=== PATIENT | male | born 1945 | race Caucasian/White ===

== ENCOUNTER 2016-08-11 13:35 | Observation (INO) | payer MEDICARE, OTHER ==
--- NOTE | ~2016-08-11 | CN ---
Consultation Report [facility] [address] [place]. [address] NAME: NITHIN OLSEN : [birth year] STATUS : ADM Aramis PAT#: [id number] AGE: 71 ADM/REG DATE : 08/11/16 MR#: [id number] REPORT SERV DATE: 08/12/16 DICTATED BY: NITHIN HERRON DATE: 08/12/16 REPORT STATUS : Draft TRANSCRIBED BY: MODL DATE: 08/12/16 INPATIENT CONSULTATION DATE OF CONSULTATION: 08/12/2016 REASON FOR CONSULTATION: Hematemesis and melena. HISTORY OF PRESENT ILLNESS: Mr. Olsen is a very pleasant 71-year-old male with past medical history significant only for a history of rheumatoid arthritis, on chronic NSAIDs, who presented to the emergency department with complaints of dark black liquid stools and an episode of hematemesis with clots. The patient states that on the day prior to presentation, he started noticing that his stools were turning dark black when liquid. The following morning, on the day of presentation, the patient was noted to have a syncopal episode, which was followed by an episode of hematemesis with vomiting of dark clots. The patient went to the emergency department for evaluation and was noted to have a hemoglobin of 12.0, platelet count was 228,000. INR was 1.3, PTT was 25. Comprehensive metabolic panel was remarkable for an elevated BUN of 37 and a creatinine of 1.0. The remainder of the patient's labs were unremarkable. The patient was admitted for further evaluation, and GI consult was called. REVIEW OF SYSTEMS: All systems were reviewed and were negative, aside from what was mentioned in the history of present illness. The patient denied any abdominal pain. No fevers or chills. No further nausea or vomiting. PAST MEDICAL HISTORY: Includes: 1. Rheumatoid arthritis, on daily NSAIDs. 2. Gout. FAMILY HISTORY: The patient does have a family history of colon cancer and has had regular screenings by report, but the patient does not know the name of his patient observation assistant. The patient's patient observation assistant is reportedly in [place]. SOCIAL HISTORY: The patient denies any alcohol, tobacco, or illicit substance use. ALLERGIES: THE PATIENT HAS NO KNOWN DRUG ALLERGIES. MEDICATIONS: Outpatient medications include: 1. Allopurinol. 2. Aspirin. 3. CoQ10. 4. Etodolac. 5. Diclofenac. 6. Magnesium oxide. Consultation Report [facility] [address] [place]. [address] NAME: NITHIN OLSEN : [birth year] STATUS : ADM Aramis PAT#: [id number] AGE: 71 ADM/REG DATE : 08/11/16 MR#: [id number] REPORT SERV DATE: 08/12/16 DICTATED BY: NITHIN HERRON DATE: 08/12/16 REPORT STATUS : Draft TRANSCRIBED BY: MODL DATE: 08/12/16 7. Red yeast. 8. Multivitamin. 9. Mirapex. 10.Garlic. 11.Fish oil. 12.Turmeric. PHYSICAL EXAMINATION: VITAL SIGNS: Most recent vital signs include a temperature of 98.2, heart rate of 84, blood pressure 109/55, saturating 96% on room air. GENERAL INSPECTION: Reveals an obese male, lying in bed, in no apparent distress. HEENT: Head is normocephalic and atraumatic. Oral mucosa has moist mucous membranes. Sclerae are nonicteric. Pupils are equal and round. NECK: Supple without lymphadenopathy. HEART: Rate is regular with normal S1 and S2. RESPIRATORY: Lung sounds clear to auscultation bilaterally. ABDOMEN: Soft, nontender, nondistended with normoactive bowel sounds. EXTREMITIES: The patient has no cyanosis, clubbing, or edema. SKIN: No jaundice or rash. NEUROLOGIC: No gross motor deficits. He is alert and oriented. Mood and affect are appropriate. Judgment appears to be intact. LABORATORY DATA: Most recent laboratory results include CBC that demonstrated a drop in hemoglobin to 10.3, white count is 8.4, platelet count is 183,000. Comprehensive metabolic panel was entirely unremarkable, aside from a low albumin of 2.7. Iron studies were normal. No pertinent imaging to review. ASSESSMENT AND PLAN: Mr. Olsen is a very pleasant 71-year-old male with a past medical history of rheumatoid arthritis, on daily NSAIDs, who presents after an episode of hematemesis and melena. This is concerning for peptic ulcer disease. Would keep the patient n.p.o. for the time being and place him on a Protonix drip until endoscopy can be performed. We will proceed with upper endoscopy for further evaluation. Further recommendations to come after endoscopy. Thank you very much for this interesting consult and allowing us to participate in Mr. Olsen's care. Please call with any questions or concerns you may have. [facility] Nithin Herron MD Consultation Report [address] [address] NAME: NITHIN OLSEN : [birth year] STATUS : ADM Aramis PAT#: [id number] AGE: 71 ADM/REG DATE : 08/11/16 MR#: [id number] REPORT SERV DATE: 08/12/16 DICTATED BY: NITHIN HERRON DATE: 08/12/16 REPORT STATUS : Draft TRANSCRIBED BY: LUCAS DATE: 08/12/16 / [id number] CC: Nithin Marte Jr, MD
--- NOTE | ~2016-08-11 | EGD ---
EGD REPORT [facility] [address] [place] [address] NAME: NITHIN OLSEN : 47 STATUS : ADM Aramis PAT#: [id number] AGE: 71 ADM/REG DATE : 08/11/16 MR#: [id number] REPORT SERV DATE: 08/12/16 DICTATED BY: NITHIN HERRON DATE: 08/12/16 REPORT STATUS : Draft [facility]ANSCRIBED BY: [facility] DATE: 08/12/16 Endoscopy Center Patient Name: Nithin Olsen Date of : 1945 Attending MD: NITHIN HERRON MD Procedure Date No Time: 08/12/2016 Procedure: Upper GI endoscopy Indications: Hematemesis, Melena Referring MD: MACIE PINTO MD Medicines: Monitored Anesthesia Care Complications: No immediate complications. Estimated blood loss: Minimal. Procedure: Pre-Anesthesia Assessment: - ASA Grade Assessment: III - A patient with severe systemic disease. After obtaining informed consent, the endoscope was passed under direct vision. Throughout the procedure, the patient's blood pressure, pulse, and oxygen saturations were monitored continuously. The GIF H190 [id number] was introduced through the mouth, and advanced to the second part of duodenum. The upper GI endoscopy was accomplished without difficulty. The patient tolerated the procedure well. Findings: The examined esophagus was normal. A small hiatus hernia was present. A 10 mm gastric ulcer was seen with no bleeding and no stigmata of bleeding. Biopsies were taken with a colod forceps for histology. The examined duodenum was normal. The exam was otherwise without abnormality. Impression: - Hiatal Hernia - Gastric ulcer with clean base. Biopsied. - The examination was otherwise normal. Recommendation: - Return patient to hospital [facility] for ongoing care. - Await pathology results. - Clear liquid diet today. - Use Protonix (pantoprazole) 40 mg PO BID for 3 months. - Return to GI clinic in 8 weeks. Procedure Code(s): --- Professional --- 48968, Esophagogastroduodenoscopy, flexible, transoral; with biopsy, single or multiple EGD REPORT [facility] [address] [place]. [address] NAME: NITHIN OLSEN : [birth year] STATUS : ADM Aramis PAT#: [id number] AGE: 71 ADM/REG DATE : 08/11/16 MR#: [id number] REPORT SERV DATE: 08/12/16 DICTATED BY: NITHIN HERRON DATE: 08/12/16 REPORT STATUS : Draft TRANSCRIBED BY: [employer] DATE: 08/12/16 Diagnosis Code(s): --- Professional --- K25.9, Gastric ulcer, unspecified as acute or chronic, without hemorrhage or perforation K92.0, Hematemesis K92.1, Melena CPT copyright 2013 [employer]. All rights reserved. The codes documented in this report are preliminary and upon chemical weigher review may be revised to meet current compliance requirements. Nithin Herron MD NITHIN HERRON MD 08/12/2016 8:26 AM This report has been signed electronically. Number of Addenda: 0 Note Initiated On: 08/12/2016 8:02 AM Scope Withdrawal Time 0 hours 0 minutes 0 seconds [address] [place] [address]
--- NOTE | ~2016-08-11 | DS ---
Discharge Summary [facility] [address] [address] [place]. [address] NAME: NITHIN OLSEN : [birth year] STATUS : DIS Aramis PAT#: [id number] AGE: 71 ADM/REG DATE : 08/11/16 MR#: [id number] REPORT SERV DATE: 08/13/16 DICTATED BY: JR. MARTE WILLIAM JOHN DATE: 08/12/16 REPORT STATUS : Draft TRANSCRIBED BY: MODBrendan DATE: 08/12/16 ADMISSION DATE: 08/11/2016 DISCHARGE DATE: 08/12/2016 DISCHARGE DIAGNOSES: 1. Gastric antral ulcer with clean base. 2. Orthostatic syncope. 3. Rheumatoid arthritis. 4. Mildly prolonged QRS. 5. Gout. OPERATIONS, PROCEDURES, AND TREATMENTS: 1. Chest x-ray done 08/11/2016, which showed cardiomegaly without acute findings. 2. Upper endoscopy by Dr. Nithin Rust on 08/12 with the finding of hiatal hernia, a gastric ulcer with clean base, which was biopsied, otherwise normal exam. DISCHARGE MEDICATIONS: 1. Allopurinol 300 mg orally daily. 2. Coenzyme Q 100 mg orally daily. 3. Mag-Ox 400 mg orally daily. 4. Protonix 40 mg orally twice a day for 12 weeks. 5. Mirapex 0.25 mg orally daily. 6. Multivitamin tablet orally daily. 7. Red yeast twice a day 600 mg. 8. Garlic one tablet orally daily. 9. Fish oil 5 mL orally daily. 10.Turmeric 500 mg orally daily. HOSPITAL COURSE: The patient is a 71-year-old white male with a history of rheumatoid arthritis and gout on chronic NSAID therapy. He has noticed dark stools and diarrhea followed by a brief syncopal episode. The patient went to discuss with his primary care physician in clinic who recommended the patient to come to the emergency room. The patient had no symptoms once in the emergency room. His initial exam was rather unremarkable with a temperature 98.2, blood pressure 131/75, heart rate 101, respiratory rate of 16. He did have a systolic ejection murmur and his initial hemoglobin level was 12. The patient was admitted to the hospital placed on proton pump inhibitor therapy and seen in consultation by Gastroenterology. He underwent serial hemoglobin and hematocrit, which were stable around 10.3. He required no transfusion. He had an upper endoscopy, which showed an antral gastric ulcer with a clean base. No stigmata of recent bleed. Recommendation was for twice a day proton pump inhibitor for 12 weeks and followup with GI in 8 weeks. The patient strongly desired discharge home. On the day of the endoscopy, we discussed with him the risk especially given his syncope. The patient chooses to accept that risk and desires discharge home, agrees to follow up if he has any evidence of bleeding or presyncope. DISCHARGE DIET: GI soft. Discharge Summary [address] [address] NAME: NITHIN OLSEN : [birth year] STATUS : DIS Aramis PAT#: [id number] AGE: 71 ADM/REG DATE : 08/11/16 MR#: [id number] REPORT SERV DATE: 08/13/16 DICTATED BY: JR. MARTE WILLIAM JOHN DATE: 08/12/16 REPORT STATUS : Draft TRANSCRIBED BY: LUCAS DATE: 08/12/16 ACTIVITY: As tolerated. For discharge exam and laboratory, please see daily progress note. [facility] Nithin Marte Jr, MD / [id number] CC: Nithin Marte Jr, MD
--- NOTE | ~2016-08-11 | EGD ---
EGD REPORT [facility] [address] [place]. [address] NAME: NITHIN OLSEN : [birth year] STATUS : ADM Aramis PAT#: [id number] AGE: 71 ADM/REG DATE : 08/11/16 MR#: [id number] REPORT SERV DATE: 08/12/16 DICTATED BY: NITHIN HERRON DATE: 08/12/16 REPORT STATUS : Draft TRANSCRIBED BY: [facility] DATE: 08/12/16 Endoscopy Center Patient Name: Nithin Olsen Date of : 1945 Attending MD: NITHIN HERRON MD Procedure Date No Time: 08/12/2016 Procedure: Upper GI endoscopy Indications: Hematemesis, Melena Referring MD: MACIE PINTO MD Medicines: Monitored Anesthesia Care Complications: No immediate complications. Estimated blood loss: Minimal. Procedure: Pre-Anesthesia Assessment: - ASA Grade Assessment: III - A patient with severe systemic disease. After obtaining informed consent, the endoscope was passed under direct vision. Throughout the procedure, the patient's blood pressure, pulse, and oxygen saturations were monitored continuously. The GIF H190 [id number] was introduced through the mouth, and advanced to the second part of duodenum. The upper GI endoscopy was accomplished without difficulty. The patient tolerated the procedure well. Findings: The examined esophagus was normal. A small hiatus hernia was present. The examined duodenum was normal. The exam was otherwise without abnormality. Impression: - Hiatal Hernia - Gastric ulcer with clean base. Biopsied. - The examination was otherwise normal. Recommendation: - Return patient to hospital [facility] for ongoing care. - Await pathology results. - Clear liquid diet today. - Use Protonix (pantoprazole) 40 mg PO BID for 3 months. - Return to GI clinic in 8 weeks. Procedure Code(s): --- Professional --- 38379, Esophagogastroduodenoscopy, flexible, transoral; with biopsy, single or multiple Diagnosis Code(s): --- Professional --- EGD REPORT [facility] [address] [place] [address] NAME: NITHIN OLSEN : [birth year] STATUS : ADM Aramis PAT#: [id number] AGE: 71 ADM/REG DATE : 08/11/16 MR#: [id number] REPORT SERV DATE: 08/12/16 DICTATED BY: NITHIN HERRON DATE: 08/12/16 REPORT STATUS : Draft TRANSCRIBED BY: [employer] DATE: 08/12/16 K25.9, Gastric ulcer, unspecified as acute or chronic, without hemorrhage or perforation K92.0, Hematemesis K92.1, Melena CPT copyright 2013 [employer]. All rights reserved. The codes documented in this report are preliminary and upon comic book writer review may be revised to meet current compliance requirements. Nithin Herron MD NITHIN HERRON MD 08/12/2016 8:26 AM This report has been signed electronically. Number of Addenda: 0 Note Initiated On: 08/12/2016 8:02 AM Scope Withdrawal Time 0 hours 0 minutes 0 seconds [address] [place] [address]
--- NOTE | ~2016-08-11 | HP ---
History And Physical [place] [address] [facility]. [address] NAME: NITHIN OLSEN : [birth year] STATUS : ADM Aramis PAT#: [id number] AGE: 71 ADM/REG DATE : 08/11/16 MR#: [id number] REPORT SERV DATE: 08/12/16 DICTATED BY: RUBEN ZULETA DATE: 08/11/16 REPORT STATUS : Draft TRANSCRIBED BY: MODL DATE: 08/11/16 DATE OF ADMISSION: 08/11/2016 CHIEF COMPLAINT: Acute vomiting of blood. HISTORY OF PRESENT ILLNESS: The patient is a 71-year-old male, with past medical history of RA and gout on chronic NSAIDs who yesterday started noticing having dark stools with diarrhea, went to sleep and this morning was getting ready, noted to have syncope episode in which he passed out, was caught by and once came to had vomitus of dark clots. The patient went to discuss with PCP in clinic who recommended ER evaluation. Upon arrival, the patient reports that his symptoms have resolved, has not had any more dark stools or vomiting. No more dizziness or syncope type episode. Symptoms were fairly sudden, occurred last night and this morning, moderate severity with no pain radiating symptoms. No headaches. Positive nausea, vomiting, and diarrhea. No fever or chills, wheezing or chest pain. There is no worsening or relieving symptoms. Symptoms appear to have resolved. REVIEW OF SYSTEMS: Additional ten point review of systems negative except for that noted in the HPI. PAST MEDICAL HISTORY: RA, gout. SURGICAL HISTORY: None. FAMILY HISTORY: Noted for colon cancer in which the patient himself has also been on regular screening, approximately five years ago. Diabetes and coronary disease medical history. SOCIAL HISTORY: Accompanied by spouse. No smoking, alcohol, or illicits. Retired . ALLERGIES: NO KNOWN DRUG ALLERGIES. HOME MEDICATIONS: Allopurinol, aspirin, CoQ10, etodolac, magnesium oxide, red yeast, multivitamin, Mirapex, garlic, fish oil, turmeric. DATA: EKG shows normal sinus rhythm with left axis changes, QTc mildly enlarged at 490 with a rate of 86. CMP grossly within normal limits with a BUN enlarged at 37, creatinine 1.02, potassium 4.1. LFTs within normal limits. CBC: WBC 11.5, H and H 12 and 36.2, platelets 228, INR 1.3. PHYSICAL EXAMINATION: VITAL SIGNS: Blood pressure again was 131/75, temperature 98.2, pulse initially 101 down to 80s, respirations 16, O2 saturations 97% on room air. GENERAL: No acute distress. Calm, pleasant, well developed, well nourished, obese. EYES: No scleral icterus. EOMI. ENT: Nares patent. Tongue midline. Moist mucous membranes. History And Physical [address] [place]. [address] NAME: NITHIN OLSEN : [birth year] STATUS : ADM Aramis PAT#: [id number] AGE: 71 ADM/REG DATE : 08/11/16 MR#: [id number] REPORT SERV DATE: 08/12/16 DICTATED BY: RUBEN ZULETA DATE: 08/11/16 REPORT STATUS : Draft TRANSCRIBED BY: LUCAS DATE: 08/11/16 RESPIRATORY: Clear to auscultation. No wheezes, rales, or rhonchi. CV: Regular rate. Systolic ejection murmur approximately 2/6 to 3/6 chronic. No pedal edema. GI: Soft, nontender, nondistended. Bowel sounds positive. Negative rebound. Hemoccult positive in ED. : Deferred. MUSCULOSKELETAL: Moves all extremities x4. SKIN: Warm and dry. LYMPH: No cervical or supraclavicular lymphadenopathy. HEME: No bleeding or bruising on skin acutely. NEURO: Alert and oriented. No asterixis. Moves all extremities x4. No reproducible symptomatic orthostasis currently. PSYCH: Appropriate mood and affect. ASSESSMENT AND PLAN: 1. Upper gastrointestinal bleed. 2. Rheumatoid arthritis. 3. Dark stools. 4. Mild prolonged QRS. 5. Gout. PLAN: 1. For upper GI bleed, does have significant NSAID use. Has been using diclofenac for years has been changed over to etodolac approximately two years ago. We will hold NSAIDs at this time with the elevated BUN creatinine ratio greater than 20 to 1, PPI drip. Case has been discussed with GI quality control chemist. We will place n.p.o. at midnight. PPI drip and EGD planned for a.m. The patient has had prior scope approximately five years ago due to colon cancer history in family, noted to have polyps but no acute episodes. This was arranged through CT, and the patient is unaware of GI doctor who performed this procedure. 2. RA. Hold NSAIDs p.r.n. 3. Dark stools. Monitor serial H and H, transfuse if hemoglobin less than 8 or hematocrit less than 25, currently vital signs stable. 4. Mild prolonged QRS. Monitor lytes, no acute findings, a.m. EKG and followup. Does have baseline murmur, has been followed by PCP. 5. Gout. Continue home medications. All questions answered to the patient's family at bedside. DISPOSITION: Pending findings from above and monitoring of labs. I have discussed current plan and progress tentatively. Also, I have discussed that if change in vital signs, H and H, may require higher level care/ICU care although with current H and H fairly stable, tachycardia resolving, and blood pressure stabilizing. I anticipate the patient has already started having healing of upper GI source. History And Physical [address] [address] NAME: NITHIN OLSEN : [birth year] STATUS : ADM Aramis PAT#: [id number] AGE: 71 ADM/REG DATE : 08/11/16 MR#: [id number] REPORT SERV DATE: 08/12/16 DICTATED BY: RUBEN ZULETA DATE: 08/11/16 REPORT STATUS : Draft TRANSCRIBED BY: LUCAS DATE: 08/11/16 [facility] Ruben Zuleta MD / [id number] CC: Nithin Marte Jr, MD William Korn, M.D.
[2016-08-11 14:30] LABS: BASOPHILS 0.4 %; BASOPHILS ABSOLUTE 0.05 10/3/uL (0.0-0.16); EOSINOPHILS 1.3 %; EOSINOPHILS ABSOLUTE 0.15 10/3/uL (0.0-0.53); ER CBC TAT 0 Hrs 08 Mins; HEMATOCRIT 36.2 % (40.0-51.0); IMMATURE GRANULOCYTES 0.3 %; IMMATURE GRANULOCYTES ABSOLUTE 0.03 10/3/uL (0.0-0.11); LYMPHOCYTES 16.6 %; LYMPHOCYTES ABSOLUTE 1.92 10/3/uL (0.67-4.30); MEAN CORPUS HGB CONC 33.1 g/dL (32.0-36.0); MEAN CORPUSCULAR HEMOGLOB 32.7 pg (26.0-34.0); MEAN CORPUSCULAR VOLUME 98.6 fL (80-100); MEAN PLATELET VOLUME 9.9 fL (9.2-13.0); MONOCYTES ABSOLUTE 1.04 10/3/uL (0.21-1.20); NEUTROPHILS 72.4 %; NEUTROPHILS ABSOLUTE 8.35 10/3/uL (2.02-8.40); PLATELET COUNT 228 10/3/uL (150-400); RBC DISTRIBUTION WIDTH 14.3 % (12.0-16.0); RED CELL COUNT 3.67 10/6/uL (4.7-6.1); WHITE BLOOD CELLS 11.5 10/3/uL (4.5-10.5)
[2016-08-11 14:31] LABS: MANUAL DIFF NO %
[2016-08-11 14:34] LABS: INTERNATIONAL NORMAL RATI 1.3 UNITS (-); PARTIAL THROMBO TIME 24.6 SEC (22.5-37.2); PROTIME (NOT ORD) 15.9 SEC (12.0-14.5)
[2016-08-11 14:42] LABS: A/G RATIO 0.9 (0.7-1.9); ALBUMIN 3.2 G/DL (3.5-5.0); ALKALINE PHOSPHATASE 50 U/L (45-117); BUN (BLOOD UREA NITROGEN) 37 MG/DL (6-23); CALCIUM, SERUM 8.2 MG/DL (8.5-10.4); CHLORIDE, SERUM 103 MMOL/L (96-112); CO2 (CARBON DIOXIDE) 26 MMOL/L (24-34); CREATININE 1.02 MG/DL (0.70-1.30); GFR AFRICAN AMERICAN 86 ML/MIN (>=60); GFR NON AFRICAN AMERICAN 74 ML/MIN (>=60); GLOBULIN 3.4 G/DL (2.5-4.1); GLUCOSE, SERUM 96 MG/DL (60-99); POTASSIUM, SERUM 4.1 MMOL/L (3.5-5.3); SGOT(AST) 19 U/L (5-40); SGPT(ALT) 22 U/L (5-65); SODIUM, SERUM 138 MMOL/L (135-148); TOTAL BILIRUBIN 0.5 MG/DL (0-1.2); TOTAL PROTEIN 6.6 G/DL (6.0-8.5)
[2016-08-11] MEDS ORDERED: ETODOLAC400 MG PO (17:55)
[2016-08-11] MEDS ORDERED: Z300 PO (17:55)
[2016-08-11] MEDS ORDERED: MIRAPEX250 PO (17:56)
[2016-08-11] MEDS ORDERED: ASAB PO (17:57)
[2016-08-11] MEDS ORDERED: MULTIVITAMI1 PO (17:57)
[2016-08-11] MEDS ORDERED: CO Q-10100 MG PO (17:58)
[2016-08-11] MEDS ORDERED: RED YEAS1 PO (17:58)
[2016-08-11] MEDS ORDERED: GARLIQUE PO (17:58)
[2016-08-11] MEDS ORDERED: FISH OIL PO (17:59)
[2016-08-11] MEDS ORDERED: TURMERIC PO (18:00)
[2016-08-11] MEDS ORDERED: MAGOX4 PO (18:00)
[2016-08-11 23:24] LABS: HEMOGLOBIN 10.4 g/dL (13.6-17.8)
[2016-08-11 23:27] LABS: HEMATOCRIT 30.9 % (40.0-51.0)
[2016-08-12 06:46] LABS: BASOPHILS 0.5 %; BASOPHILS ABSOLUTE 0.04 10/3/uL (0.0-0.16); EOSINOPHILS 3.6 %; HEMATOCRIT 30.1 % (40.0-51.0); HEMOGLOBIN 10.3 g/dL (13.6-17.8); IMMATURE GRANULOCYTES 0.2 %; IMMATURE GRANULOCYTES ABSOLUTE 0.02 10/3/uL (0.0-0.11); LYMPHOCYTES 12.8 %; LYMPHOCYTES ABSOLUTE 1.07 10/3/uL (0.67-4.30); MEAN CORPUS HGB CONC 34.2 g/dL (32.0-36.0); MEAN CORPUSCULAR HEMOGLOB 33.4 pg (26.0-34.0); MEAN CORPUSCULAR VOLUME 97.7 fL (80-100); MEAN PLATELET VOLUME 9.8 fL (9.2-13.0); MONOCYTES 12.1 %; MONOCYTES ABSOLUTE 1.01 10/3/uL (0.21-1.20); NEUTROPHILS 70.8 %; NEUTROPHILS ABSOLUTE 5.91 10/3/uL (2.02-8.40); PLATELET COUNT 183 10/3/uL (150-400); RBC DISTRIBUTION WIDTH 14.3 % (12.0-16.0); RED CELL COUNT 3.08 10/6/uL (4.7-6.1); WHITE BLOOD CELLS 8.4 10/3/uL (4.5-10.5)
[2016-08-12 06:47] LABS: MANUAL DIFF NO %
[2016-08-12 07:05] LABS: A/G RATIO 0.9 (0.7-1.9); ALBUMIN 2.7 G/DL (3.5-5.0); ALKALINE PHOSPHATASE 46 U/L (45-117); CALCIUM, SERUM 7.4 MG/DL (8.5-10.4); CHLORIDE, SERUM 105 MMOL/L (96-112); CO2 (CARBON DIOXIDE) 26 MMOL/L (24-34); FERRITIN 76 NG/ML (26-388); GFR AFRICAN AMERICAN 105 ML/MIN (>=60); GFR NON AFRICAN AMERICAN 91 ML/MIN (>=60); GLUCOSE, SERUM 96 MG/DL (60-99); IRON BINDING CAPACITY 258 MCG/DL (250-450); IRON, SERUM 36 MCG/DL (35-150); SGOT(AST) 15 U/L (5-40); SGPT(ALT) 19 U/L (5-65); SODIUM, SERUM 139 MMOL/L (135-148); TOTAL BILIRUBIN 0.8 MG/DL (0-1.2); TOTAL PROTEIN 5.7 G/DL (6.0-8.5)
[2016-08-12 07:06] LABS: BUN (BLOOD UREA NITROGEN) 24 MG/DL (6-23)
[2016-08-12] MEDS ORDERED: PROTONIX PO (15:45)
[2016-10-06] MEDS ORDERED: NEUR100 PO (12:25)
[2016-10-06] MEDS ORDERED: L20 PO (12:31)
[2016-10-06] MEDS ORDERED: FISH-EPA1000 MG PO (12:33)
== END 2016-08-12 16:21 | disposition home or self-care (01) ==
LOC: ER 13:35 → CDU1 19:02
PROVIDERS: Emergency Medicine; Internal Medicine Gastroenterology; Student in an Organized Health Care Education/Training Program
PROC: 0DB68ZX Excision of Stomach, Via Natural or Artificial Opening Endoscopic, Diagnostic (ICD-10-PCS; principal; 2016-08-12 08:09)
DX: K92.0 Hematemesis (principal); K44.9 Diaphragmatic hernia without obstruction or gangrene; M06.9 Rheumatoid arthritis, unspecified; E66.9 Obesity, unspecified; M10.9 Gout, unspecified; Z79.82 Long term (current) use of aspirin; Z79.899 Other long term (current) drug therapy
CPT/HCPCS: 36415; 71010; 80053; 82728; 83540; 83550; 83735; 85014; 85018; 85025; 85610; 85730; 86850; 86900; 86901; 86920; 88305; 93005; 96374; 96376; 99285; A9270-GY; C9113; G0378

== ENCOUNTER 2016-10-08 10:54 | Day surgery (SDC) | payer OTHER, MEDICARE ==
--- NOTE | ~2016-10-08 | EGD ---
EGD REPORT [facility] [address] [place]. [address] NAME: NITHIN OSLEN : 47 STATUS : REG [facility] [place] PAT#: [id number] AGE: 71 ADM/REG DATE : 10/08/16 MR#: [id number] REPORT SERV DATE: 10/08/16 DICTATED BY: COLETTE GROVE DATE: 10/08/16 REPORT STATUS : Draft TRANSCRIBED BY: [employer] DATE: 10/08/16 Endoscopy Center Patient Name: Nithin Olsen Date of : 1945 Attending MD: WESLEY GROVE MD Procedure Date No Time: 10/08/2016 Procedure: Upper GI endoscopy Indications: Follow-up of gastrointestinal bleeding Referring MD: Pawel Dimas Medicines: See the Anesthesia note for documentation of the administered medications Complications: No immediate complications. Estimated blood loss: Minimal. Procedure: Pre-Anesthesia Assessment: - ASA Grade Assessment: III - A patient with severe systemic disease. - Prior to the procedure, a History and Physical was performed, and patient medications and allergies were reviewed. The patient's tolerance of previous anesthesia was also reviewed. The risks and benefits of the procedure and the sedation options and risks were discussed with the patient. All questions were answered, and informed consent was obtained. Prior Anticoagulants: The patient has taken no previous anticoagulant or antiplatelet agents. After reviewing the risks and benefits, the patient was deemed in satisfactory condition to undergo the procedure. After obtaining informed consent, the endoscope was passed under direct vision. Throughout the procedure, the patient's blood pressure, pulse, and oxygen saturations were monitored continuously. The GIF H190 [id number] was introduced through the mouth, and advanced to the second part of duodenum. The upper GI endoscopy was accomplished without difficulty. The patient tolerated the procedure well. Findings: The examined duodenum was normal. Localized moderate inflammation characterized by congestion (edema), erosions and erythema was found in the gastric antrum. Biopsies were taken with a cold forceps for histology. The cardia and gastric fundus were normal on retroflexion. There is no endoscopic evidence of ulceration in the entire examined stomach. There were esophageal mucosal changes suspicious for short-segment EGD REPORT [address] 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 The maximum longitudinal extent of these mucosal changes was 2 cm in length. Mucosa was biopsied with a cold forceps for histology in a targeted manner in the lower third of the esophagus. One specimen bottle was sent to pathology. No other significant abnormalities were identified in a careful examination of the esophagus. Impression: - Normal examined duodenum. - Acute gastritis. Biopsied. 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 Biopsied. Recommendation: - Patient has a contact number available for emergencies. The signs and symptoms of potential delayed complications were discussed with the patient. Return to normal activities tomorrow. Written discharge instructions were provided to the patient. - Regular diet. - Discharge patient to home. - Continue present medications. - Await pathology results. Procedure Code(s): --- Professional --- 24540, Esophagogastroduodenoscopy, flexible, transoral; with biopsy, single or multiple Diagnosis Code(s): --- Professional --- K22.9, Disease of esophagus, unspecified K29.00, Acute gastritis without bleeding K92.2, Gastrointestinal hemorrhage, unspecified CPT copyright 2013 [employer] [employer]. All rights reserved. The codes documented in this report are preliminary and upon biofuels technology development manager review may be revised to meet current compliance requirements. WESLEY GROVE MD 10/08/2016 1:05 PM This report has been signed electronically. Number of Addenda: 0 Note Initiated On: 10/08/2016 12:51 PM Scope Withdrawal Time 0 hours 0 minutes 0 seconds EGD REPORT [facility] [address] [address] NAME: NITHIN OLSEN : [birth year] STATUS : REG [facility]#: [id number] AGE: 71 ADM/REG DATE : 10/08/16 MR#: [id number] REPORT SERV DATE: 10/08/16 DICTATED BY: COLETTE GROVE DATE: 10/08/16 REPORT STATUS : Draft TRANSCRIBED BY: [employer] DATE: 10/08/16 [place] [place] [id number]
--- NOTE | ~2016-10-08 | EGD ---
EGD REPORT [facility] [address] [place] [place]. [address] NAME: NITHIN OLSEN : [birth year] [place] [facility] [place] [id number] AGE: 71 ADM/REG DATE : 10/08/16 MR#: [id number] REPORT SERV DATE: 10/08/16 DICTATED BY: COLETTE GROVE DATE: 10/08/16 REPORT STATUS : Draft TRANSCRIBED BY: [facility] DATE: 10/08/16 [facility] Patient Name: Nithin Olsen Date of : 1945 Attending MD: WESLEY GROVE MD Procedure Date No Time: 10/08/2016 Procedure: Colonoscopy Indications: FH of Colon Cancer - 1st degree relative Medicines: See the Anesthesia note for documentation of the administered medications Complications: No immediate complications. Estimated blood loss: None. Procedure: Pre-Anesthesia Assessment: - ASA Grade Assessment: III - A patient with severe systemic disease. - Prior to the procedure, a History and Physical was performed, and patient medications and allergies were reviewed. The patient's tolerance of previous anesthesia was also reviewed. The risks and benefits of the procedure and the sedation options and risks were discussed with the patient. All questions were answered, and informed consent was obtained. Prior Anticoagulants: The patient has taken no previous anticoagulant or antiplatelet agents. After reviewing the risks and benefits, the patient was deemed in satisfactory condition to undergo the procedure. After I obtained informed consent, the scope was passed under direct vision. Throughout the procedure, the patient's blood pressure, pulse, and oxygen saturations were monitored continuously. The PCF [id number] was introduced through the anus and advanced to the cecum, identified by appendiceal orifice and ileocecal valve. The ileocecal valve, appendiceal orifice and rectum were photographed. The entire colon was examined. The colonoscopy was performed without difficulty. The patient tolerated the procedure well. The quality of the bowel preparation was adequate. Findings: The perianal and digital rectal examinations were normal. Multiple small and large-mouthed diverticula were found in the entire colon. Non-bleeding internal hemorrhoids were found during retroflexion and were Grade I (internal hemorrhoids that do not prolapse). No other significant abnormalities were identified in a careful examination of the remainder of the colon. EGD REPORT [address] [place]. [address] NAME: NITHIN OLSEN : [birth year] STATUS : REG [facility]#: [id number] AGE: 71 ADM/REG DATE : 10/08/16 MR#: [id number] REPORT SERV DATE: 10/08/16 DICTATED BY: COLETTE GROVE DATE: 10/08/16 REPORT STATUS : Draft TRANSCRIBED BY: [employer] DATE: 10/08/16 Impression: - Diverticulosis in the entire examined colon. - Non-bleeding internal hemorrhoids. Recommendation: - Patient has a contact number available for emergencies. The signs and symptoms of potential delayed complications were discussed with the patient. Return to normal activities tomorrow. Written discharge instructions were provided to the patient. - High fiber diet indefinitely. - Discharge patient to home. - Continue present medications. - Repeat colonoscopy in 5 years for surveillance. Procedure Code(s): --- Professional --- 31385, Colonoscopy, flexible, proximal to splenic flexure; diagnostic, with or without collection of specimen(s) by brushing or washing, with or without colon decompression (separate procedure) Diagnosis Code(s): --- Professional --- K64.0, First degree hemorrhoids K57.30, Diverticulosis of large intestine without perforation or abscess without bleeding Z80.0, Family history of malignant neoplasm of digestive organs CPT copyright 2013 [employer]. All rights reserved. The codes documented in this report are preliminary and upon claims manager review may be revised to meet current compliance requirements. WESLEY GROVE MD 10/08/2016 1:19 PM This report has been signed electronically. Number of Addenda: 0 Note Initiated On: 10/08/2016 12:50 PM Scope Withdrawal Time 0 hours 8 minutes 37 seconds [id number] [id number]
[~2016-10-08 10:54] MED LIST: ASAB PO; CO Q-10100 MG PO; ETODOLAC400 MG PO; FISH OIL PO; FISH-EPA1000 MG PO; GARLIQUE PO; L20 PO; MAGOX4 PO; MIRAPEX250 PO; MULTIVITAMI1 PO; NEUR100 PO; PROTONIX PO; RED YEAS1 PO; TURMERIC PO; Z300 PO
== END 2016-10-08 23:59 | disposition home or self-care (01) ==
LOC: DMU 10:54
PROVIDERS: Internal Medicine Gastroenterology
PROC: 0DJD8ZZ Inspection of Lower Intestinal Tract, Via Natural or Artificial Opening Endoscopic (ICD-10-PCS; principal; 2016-10-08 12:30)
PROC: 0DB68ZX Excision of Stomach, Via Natural or Artificial Opening Endoscopic, Diagnostic (ICD-10-PCS; 2016-10-08 12:30)
DX: Z12.11 Encounter for screening for malignant neoplasm of colon (principal); K29.51 Unspecified chronic gastritis with bleeding; K20.9 Esophagitis, unspecified; K22.9 Disease of esophagus, unspecified; K57.30 Diverticulosis of large intestine without perforation or abscess without bleeding; K64.0 First degree hemorrhoids; E66.01 Morbid (severe) obesity due to excess calories; K21.9 Gastro-esophageal reflux disease without esophagitis; Z80.0 Family history of malignant neoplasm of digestive organs; Z87.891 Personal history of nicotine dependence; Z79.899 Other long term (current) drug therapy; Z98.890 Other specified postprocedural states
CPT/HCPCS: 43239; G0105; 88305; 88342